=== PATIENT | female | born 1950 | race Caucasian/White ===

== ENCOUNTER 2019-02-01 11:07 | Inpatient (IN) | payer OTHER ==
[~2019-02-01] VITALS: Ht 167.6 cm; Wt 61.5 kg
--- NOTE | ~2019-02-01 | H ---
[facility] [place] [address] HISTORY AND PHYSICAL Name: FRANCA KAHN Room #: 431-P ADM IN M.R.#: [id number] Admission: 02/01/19 Attend Phys: Elizabeth Salvador Discharge: Date of : 48 Report #: [id number] THIS REPORT FOR: //name// CC: Pedro Pablo Navarrete DATE OF SERVICE: 02/01/2019 CHIEF COMPLAINT: This is a 68-year-old female with unrelenting back pain. HISTORY OF PRESENT ILLNESS: This is a patient who has been on ____ hospice because of lung cancer and terminal COPD, but we have been unable to manage her pain in her back. She apparently has had hip injections, but on my examination in the office her hips were not the origin of this process, it was her lower back and she was in obvious distress in the office and she was subsequently admitted. PAST MEDICAL HISTORY: Severe COPD and apparently has history of lung cancer. She has had treatment and apparently the lesion in the lung is stable. She is oxygen dependent. MEDICATIONS: List is documented in the record. FAMILY HISTORY: Noncontributory. SOCIAL HISTORY: She is failing at home and uncontrolled pain. REVIEW OF SYSTEMS: Otherwise, negative other than the pain. PHYSICAL EXAMINATION: GENERAL: Shows her to be in distress because of low back pain and pain in her legs. She can barely move from the wheelchair to the bed. HEENT: Otherwise, negative. She is on oxygen. NECK: Supple. CHEST: Diminished. CARDIOVASCULAR: Showed a regular rhythm without murmur. ABDOMEN: Soft and nontender. EXTREMITIES: Show 2+ edema. NEUROLOGIC: Showed no focal deficits. When I examined, I could get full range of motion of both hips when she was lying down without discomfort, but any movement was the cause significant pain and emotional response. ASSESSMENT AND PLAN: This is a patient with terminal chronic obstructive pulmonary disease and lung cancer who has unrelenting back pain and we need to further define the source of this discomfort whether it is a metastasis versus [facility] [address] [place] [address] HISTORY AND PHYSICAL Name: FRANCA KAHN Room #: 431-P ADM IN M.R.#: [id number] Admission: 02/01/19 Attend Phys: Elizabeth Salvador Discharge: Date of : 48 Report #: [id number] compression fracture or potentially other causes is not clear. I think MR scanning would be the most appropriate way to start with ongoing inpatient pain management. By: [id number] Pedro Pablo Navarrete MD /nt
[2019-02-01 12:11] VITALS: BP 110/53
[2019-02-01 15:52] LABS: HEMATOCRIT 27.5 % (37.0-47.0); HEMOGLOBIN 8.8 gm/dL (12.0-15.0); MCH 24.4 pg (26.0-34.0); MCHC 31.9 g/dL (28.0-37.0); MCV 76.5 fL (80.0-100.0); PLATELET COUNT 295 thou/uL (150-400); RDW 24.5 % (10.5-14.5); WBC 8.4 thou/uL (4.0-11.0)
[2019-02-01 15:59] VITALS: BP 126/64
[2019-02-01 16:00] LABS: CALCIUM 8.7 mg/dL (8.5-10.1); CREATININE 0.4 mg/dL (0.6-1.0)
[2019-02-01 16:02] LABS: POTASSIUM 2.9 mmol/L (3.5-5.1)
[2019-02-01 16:14] LABS: ABSOLUTE NEUTROPHILS 7.3 thou/uL (1.4-8.2); ANISOCYTOSIS 1+; PLATELET ESTIMATE NORMAL
--- NOTE | 2019-02-01 18:32 | NUR ---
Pt arrived to floor as direct admit from Dr Navarrete's office.Admission history, assessment and care plan completed.Dr Navarrete notified about pt admission to unit.He rounded on pt and order noted.Pt c/o soa and requested for breathing treatment.Dr Holcomb returned call and order noted.Will continue to monitor.
[2019-02-01 20:13] VITALS: BP 122/60
[2019-02-02 04:20] VITALS: BP 140/70
--- NOTE | 2019-02-02 04:36 | NUR ---
ASSUMED CARE OF PT @1900 PT ASSESSED AT START OF SHIFT A&OX4 AT THIS SHIFT. WITH C/O N, PAIN IN BACK AND HIPS. MEDICATION GIVEN FOR MANAGEMENT SEE EMAR. PT REQUESTED HOME HYDROCODONE AND ATIVAN FOR THE NIGHT. RANG DR ANTHONY'S OFFIC AND THE ONCALL DR HELLER RETURNED CALL, ORDER PLACED AND EVENING MEDICATION GIVEN. PT USES BEDPAN AT NIGHT STATED IS WEAK TO USES THE COMMODE. ON 3L OF O2 AND HAS PRN BREATHING TX. POC DONE AND PT SLEPT THROUGH THE NIGHT WILL CONTINUE TO MONITOR TILL EOS.
[2019-02-02 07:16] VITALS: BP 131/57
--- NOTE | 2019-02-02 15:50 | NUR ---
PT ADMITTED RELATED TO LUNG CANCER,PAIN. CM REVIEWED CHART AND SPOKE WITH CARE TEAM. CM MET WITH PT AND HER DTR AT BEDSIDE THIS DAY. PT IS A&O X4. CM ROLE INTRODUCED. PT INDICATED SHE LIVES IN A HOUSE WITH HER SPOUSE WITH NO STEPS TO ENTER AND NO STEPS INSIDE. THEY INDICATED THAT THEY HAVE A FWW AND A 4WW FOR USE AT HOME. 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 PT INDICATED THAT [facility] HAD VISITED HER HERE AND SHE HAD DONE REVOCATION PAPERWORK. CM CALLED [facility] AND REQUESTED COPY. THEY INDICATED THAT AT THIS TIME DEPENDING ON COURSE OF CARE THEY ANTICIPATE RETURNING HOME BACK [facility]NTO [facility]. CM TO FOLLOW INDICATED WITH DC PLANNING. [facility]:P: F:
[2019-02-02 16:08] VITALS: BP 132/76
--- NOTE | 2019-02-02 17:01 | NUR ---
ASSUMED CARE AT 0700, SHIFT ASSESSMENT DONE, MEDS GIVEN, VSS. REPORTED PAIN, PAIN MEDS GIVEN. WENT FOR MRI THIS AM. REMAINS ON 3L, WILL CONTINUE TO ASSESS AND ASSIST WITH ADLs NEEDED.
[2019-02-02 19:26] VITALS: BP 130/63
--- NOTE | 2019-02-02 21:45 | NUR ---
PT ASSESSMENT COMPLETED. PT IS ALERT AND ORIENTED. SHE IS IN EXCRUCIATING PAIN TO HER LOWER BACK. SOME BRUISING NOTED TO LOWER BACK. FORM DRSG APPLIED TO OPEN AREA ON THE LEFT LOWER BACK/JUST ABOVE THE SACCRUM.PT GETS UP CAUTIOUSLY TO THE BSC WITH ROLLER WALKER AND SBA. SHE HAS EXTREME ANXIETY-MANAGED BY THERAPUTIC COMMUNICATION AND SCHEDULED ANXIETY MEDS. VSS. APPETITE OK. VOIDING OK. BM TODAY.HAD MRI COMPLETED TODAY. CONTINUES ON WHICH IS HER BASELINE. WILL CONTINUE WITH POC TILL EOS.
[2019-02-03 05:56] VITALS: BP 148/73
--- NOTE | 2019-02-03 08:36 | NUR ---
ASSESMENT COMPLETED. VSS. A/O/FLAT. C/O PAIN MANAGED BY MEDS ORDERED. NO NOTED SOA. NO NV. PT RESTING IN BED APPEARS COMFORTABLE. WILL CONT. TO MONITOR.
[2019-02-03 09:00] VITALS: BP 153/65
[2019-02-03 17:24] VITALS: BP 138/63
[2019-02-03 20:15] VITALS: BP 136/64; BP 139/68
[2019-02-04 07:38] VITALS: BP 154/64
--- NOTE | 2019-02-04 07:55 | NUR ---
NOC SUMMARY: ASSUMED CARE OF PT @1900. ASSESSMEST COMPLETED. PT C/O BACK PAIN. ON A TAPE MAKER PUMP AND CAPNOGRAPHY MONITOR. V/S STABLE. PT A&OX4. HIGH FALL RISK. FALL PREC. IN PLACE, CALL LIGHT WITHIN REACH
--- NOTE | 2019-02-04 08:44 | NUR ---
ASSESMENT COMPLETED. VSS. A/O. C/O PAIN- TECHNICAL SERVICES ASSISTANT INFUSING- BUTTON REACHABLE. NO NOTED SOA. NO NV. PT RESTING IN BED APPEARS COMFORTABLE. WILL CONT. TO MONITOR.
[2019-02-04 16:54] VITALS: BP 140/76
[2019-02-04 19:45] VITALS: BP 145/81
[2019-02-05 01:26] LABS: BE(vivo) 12.1 mmol/L (-2 to +3); HCO3 37.7 mmol/L (22.0-26.0); PCO2 55.1 mmHg (35.0-45.0); PO2 168.9 mmHg (80.0-100.0); pH 7.453 (7.360-7.450); sO2 99.2 % (92.0-98.0)
--- NOTE | 2019-02-05 01:32 | NUR ---
CASH ON DELIVERY CLERK ACTIVATED FOR DECREASE IN O2 SATS. PT O2 DEPENDENT BUT O2 DEMANDS INCREASING. NORMALLY WEARS 3L O2. SPO2 IN LOW 80S ON 6L ON ARRIVAL TO ROOM. PT APPEARED DROWSY WITH MORPHINE CLOTH MERCERIZER BACK TENDER INFUSING. CLOTH MERCERIZER BACK TENDER DC'D AND RT ADMINISTERED BREATHING TREATMENT. PT NOTED TO BE MOUTH BREATHING-VENTIMASK AT 50% PLACED BY RT. ABG DRAWN AND CXR OBTAINED. CALLED AND UPDATED ON PT STATUS WITH ORDERS RECEIVED.
--- NOTE | 2019-02-05 02:57 | NUR ---
ASSESSMENT COMPLETED.AT APPROX [id number].PT'S CONT PULSE OX WENT OFF,ON GETTING TO PT'S ROOM HER O2 SAT WAS IN THE MIED 80'S,RAT TEAM ACTIVATED.MUSEUM GUIDE PUMP WAS DC'D,BLOOD GAS AND CXR DONE.DR ANTHONY WAS NOTIFIED AND UPDATED ON PT'S CONDITION,ORDER NOTED AND CARRIED OUT.PT RESTING COMFORTABLY ON HER BED AT THIS TIME.CALL LIGHT WITHIN REACH.
[2019-02-05 04:13] VITALS: BP 153/76
[2019-02-05 07:31] VITALS: BP 144/86
--- NOTE | 2019-02-05 07:37 | NUR ---
ASSESMENT COMPLETED. VSS. A/O. C/O INDIGESTION THIS AM. NO NOTED SOA- O2 PER NC AT 3.5 L SATS AT 99%. NO NV. PT RESTING IN BED AT THIS TIME. PLANS FOR ITR PROCEDURE TODAY. WILL CONT. TO MONITOR.
--- NOTE | 2019-02-05 08:52 | NUR ---
SHARI with Dr. Marisabel Navarrete to have him call Dr. Dunbar at [phone].
--- NOTE | 2019-02-05 10:36 | NUR ---
PT C/O SEVERE PAIN THIS AM. ORDERS FOR TRAMADOL AND LIDOCAINE PATCH AND HEATING PAD. FAMILY AND PT ANXIOUS AND WAITING FOR POSSIBLE IR PROCEDURE TODAY. WILL CONT. TO MONITOR.
--- NOTE | 2019-02-05 11:44 | NUR ---
WOUND CONSULT; A LEFT STAGE 2 LEFT BUTTOCK WOUND WAS IDENTIFIED. NO S/S OF INFECTION IRREGULAR BOARDERS. PAINFULT FOR PATIENT TO TURN RE; BACK ISSUES. RECOMMENDASTION; 1-LOW AIR LOSS PUMP 2-BOARDERED FOEM TO LEFT BUTTOCK DISCUSSED WITH RN
[2019-02-05 17:01] VITALS: BP 112/74
--- NOTE | 2019-02-05 18:17 | NUR ---
PT TO HAVE MRI IN AM. PT TO HAVE MORPHINE DOSE IV PRIOR TO TEST. UPDATED.
[2019-02-05 20:20] VITALS: BP 120/64
--- NOTE | 2019-02-06 03:52 | NUR ---
ASSESSMENT COMPLETED.PT C/O PPAIN,MANAGED WITH MED.PT STILL ON O2/NC,BREATHING UNLABORED.NO BM NOTED TODAY.PT ABLE TO REPOSITION SELF IN BED.FALL PRECAUTIONS IN PLACE,CALL LIGHT WITHIN REACH.
[2019-02-06 03:57] VITALS: BP 132/62
[2019-02-06 08:38] VITALS: BP 140/72
[2019-02-06 16:06] VITALS: BP 148/72
--- NOTE | 2019-02-06 17:03 | NUR ---
ASSUMED CARE AT 0700, SHIFT ASSESSMENT DONE, EMDS GIVEN, VSS. REPORTED PAIN AND NAUSEA, PRN MEDS GIVEN. VSS. WENT FOR MRI THIS AM, RESULTS SHOW A SACRAL FRACTURE. DR MURILLO CONSULTED, WILL BE GOING FOR A SACRAPLATY TOMORROW. CONSENT SIGNED, NPO EXCEPT SIPS OF WATER AFTER MIDNIGHT, POSSIBLY SCHEDULED FOR 10 AM.
[2019-02-06 20:05] VITALS: BP 149/84
--- NOTE | 2019-02-07 00:42 | NUR ---
PT C/O PAIN AND ANXIETY,MANAGED WITH MED.PT CONR ON O2 @2.5/NC.OPTIFOAM TO HER SACRAL WOUND.PT NPO AT THIS TIME FOR A PROCEDURE IN THE AM.PT RESTING COMFORTABLY ON HER BED AT THIS TIME.FALL PREACUTIONS IN PLACE,CALL LIGHT WITHIN REACH.
[2019-02-07 04:50] VITALS: BP 173/90
[2019-02-07 08:50] VITALS: BP 126/66
[2019-02-07 08:58] VITALS: BP 121/66
--- NOTE | 2019-02-07 10:02 | NUR ---
WOUND CARE F/U; THE WOUND IS IMPROVING. LOOKS CLINICALLY BETTER. RECOMMEDNATION; CONTINUE PLAN OF CARE. STAFF PRESENT
--- NOTE | 2019-02-07 15:30 | NUR ---
CARE TEAM INDICATED THAT PT IS TO HAVE A SACROPLASTY TODAY. CM TO FOLLOW BUT PLAN HAD BEEN FOR PT TO RETURN HOME ON [facility] ONCE PAIN WAS BETTER MANAGED. CM TO FOLLOW INDICATED WITH DC PLANNING.
[2019-02-07 16:57] VITALS: BP 147/73
[2019-02-07 19:20] VITALS: BP 128/79
--- NOTE | 2019-02-08 02:02 | NUR ---
ASSUMED CARE OF PT @1900 PT ASSESED AT START OF SHIFT A&OX4 WITH C/O PAIN IN LOWER BACK AND ANXIETY MEDICATION GIVEN FOR MANAGEMENT SEE EMAR. HEATING PAD ON LOWER BACK FOR COMFORT. DENIES N/V. FALL PREC IN PLACE AND WILL CONTINUE TO MONITOR TILL EOS.
[2019-02-08 04:53] VITALS: BP 147/99
[2019-02-08 07:45] VITALS: BP 148/90
--- NOTE | 2019-02-08 13:11 | NUR ---
ROB IS RECOMMENDING POST ACUTE CARE STAY UPON DC. CM CALLED AND SPOKE WITH PT'S DTR. CM SPOKE WITH HER ABOUT [facility] [place] IS WHERE PT RESIDES. DTR INDICATED THAT SHE WOULD GO [facility]. SHE WILL LET CM NOW WHICH FACILITY THEY AE INTERESTED IN TOMORROW AM. CM TO FOLLOW INDICATED WITH DC PLANNING.
[2019-02-08 16:47] VITALS: BP 132/78
[2019-02-08 19:31] VITALS: BP 121/50
--- NOTE | 2019-02-09 03:31 | NUR ---
ASSUMED PT CARE 1899. PT ALERT AND ORIENTED. REASSESSMENT COMPLETE. VSS. IV DRESSING C/D/I. DENIES N/V. REPORTS PAIN, SEE EMAR. 3.5L O2 VIA NC. HEATING PAD APPLIED TO R HIP. WORKING TOWARD POC. CALL LIGHT AND PERSONAL BELONONGS WITHIN REACH. WILL CONTINUE POC UNTIL EOS.
[2019-02-09 04:59] VITALS: BP 126/61
[2019-02-09 07:35] VITALS: BP 135/72
[2019-02-09] MEDS ORDERED: IPRATROPIU0.2 MG/1 M INH (11:09)
[2019-02-09] MEDS ORDERED: FENTANYL1 EAC1 TRANSDERM (11:09)
[2019-02-09] MEDS ORDERED: NORCO 7.5-3251 EACH PO (11:09)
[2019-02-09] MEDS ORDERED: ATIVAN0.5 MG SUBLING (11:10)
[2019-02-09] MEDS ORDERED: MSL20MG/ML PO (11:10)
[2019-02-09] MEDS ORDERED: ONDANSETRON HCL4 M2 PO (11:10)
--- NOTE | 2019-02-09 12:47 | NUR ---
FAXED REFERRAL TO [facility] THEY RECEIVED AND WILL BE ABLE TO ACCEPT AT [facility].
[2019-02-09 13:46] VITALS: BP 135/72
--- NOTE | 2019-02-09 13:49 | NUR ---
WOUND CARE FOLLOW UP; THE LEFT BUTTOCK WOUND IS MARKEDLY IMPROVED. DECREASED PAIN, SCANT SEROUS DRAINAGE. D/C IS LIKELY TODAY. RECOMMENDATIONS; CONTINUE CURRENT TREATMENT. DISCUSSED WITH RN
== END 2019-02-09 13:50 | DRG 516 ==
LOC: 4E 11:07
PROVIDERS: ADMIT Internal Medicine
DX: M48.58XA Collapsed vertebra, not elsewhere classified, sacral and sacrococcygeal region, initial encounter for fracture (principal); J96.10 Chronic respiratory failure, unspecified whether with hypoxia or hypercapnia; J44.9 Chronic obstructive pulmonary disease, unspecified; R91.8 Other nonspecific abnormal finding of lung field; Z85.118 Personal history of other malignant neoplasm of bronchus and lung; Z99.81 Dependence on supplemental oxygen; Z79.899 Other long term (current) drug therapy
CPT/HCPCS: 10783